=== PATIENT | female | born 1945 | race African-American/Black ===

== ENCOUNTER 2020-03-20 11:03 | Inpatient (IN) ==
[~2020-03-20 11:03] MED LIST: ASPIRIN CHEW 81 MG TABLET PO ONE; DIAZEPAM 5 MG TABLET PO ONE; MAGNESIUM SULF RIDER 2 GM in PREMIX 1 EACH IV PRN; POTASSIUM CHLORIDE RIDER 10 MEQ in PREMIX 1 EACH IV PRN; SODIUM CHLORIDE 0.9% 1,000 ML IV SCH; diphenhydrAMINE CAP 25 MG CAPSULE PO ONE
[2020-03-20] MEDS ORDERED: DIAZEPAM 5 MG TABLET ONE (12:37)
[2020-03-20] MEDS ORDERED: ASPIRIN 325 MG TABLET ONE (12:37)
[2020-03-20] MEDS ORDERED: diphenhydrAMINE CAP 25 MG CAPSULE ONE (12:38)
[2020-03-20] MEDS ORDERED: ASPIRIN EC 325 MG TABLET PO ONE (12:45)
[2020-03-20] MEDS ORDERED: MIDAZOLAM 2 MG/2 ML VIAL ONE (14:07)
[2020-03-20] MEDS ORDERED: fentaNYL 100 MCG/2 ML VIAL ONE (14:07)
[2020-03-20] MEDS ORDERED: LIDOCAINE 1% 20 ML VIAL ONE (14:07)
[2020-03-20] MEDS ORDERED: HEPARIN 5,000 UNIT/1 ML VIAL ONE (14:45)
[2020-03-20] MEDS ORDERED: MAGNESIUM SULF RIDER 2 GM in PREMIX 1 EACH IV PRN (15:37)
[2020-03-20] MEDS ORDERED: MAGNESIUM SULF RIDER 4 GM in PREMIX 1 EACH IV PRN (15:37)
[2020-03-20] MEDS ORDERED: ONDANSETRON 4 MG/2 ML VIAL IV PRN (15:37)
[2020-03-20] MEDS ORDERED: GLUCAGON 1 MG VIAL IM PRN (15:37)
[2020-03-20] MEDS ORDERED: DEXTROSE 10% 250 ML BAG IV PRN (15:37)
[2020-03-20] MEDS ORDERED: NITROGLYCERIN SL 0.4 MG TABLET SL PRN (15:45)
[2020-03-20] MEDS ORDERED: Mirabegron [Myrbetriq] 25 MG PO PRN (15:45)
[2020-03-20] MEDS ORDERED: ALBUTEROL 2.5 MG/3 ML NEB RESP TX PRN (19:00)
[2020-03-20] MEDS: carvediloL 6.25 MG TABLET PO SCH (21:51)
[2020-03-20] MEDS: cilostazoL 50 MG TABLET PO SCH (21:51)
[2020-03-20] MEDS: GABAPENTIN 300 MG CAPSULE PO SCH (21:51)
[2020-03-20] MEDS: ASPIRIN EC 81 MG TABLET PO SCH (21:51)
[2020-03-21 06:25] LABS: Basophils % 0.8 % (0.0-0.8); Eosinophils % 0.6 % (0.00-10.9); Hematocrit 27.3 VOL% (35.7-47.0); Hemoglobin 9.4 GM/DL (12.0-16.0); Immature Granulocytes % 0.4 %; Immature Granulocytes Absolute 0.02 #; Lymphocytes # 1.4 10*3/uL (1.4-4.0); Lymphocytes % 27.1 % (21.3-54.2); Mean Corpuscular HGB Conc 34.4 GM/DL (32-36); Mean Corpuscular Volume 75.6 FL (87-102); Mean Platelet Volume 10.6 FL (9.6-12.0); Monocytes % 11.9 % (1.7-12.7); Neutrophils % 59.2 % (38.7-73.9); Platelet Count 188 T/CUMM (130-400); Red Blood Count 3.61 MC/CUMM (3.8-5.5); Red Cell Distribution Width 15.2 % (9.3-17.3); White Blood Count 5.3 T/CUMM (4-12)
[2020-03-21 06:49] LABS: Alanine Aminotransferase 13 U/L (13-56); Alkaline Phosphatase 43 U/L (45-117); Aspartate Amino Transferase 10 U/L (0-37); Bilirubin,Total < 0.39 MG/DL (0.2-1.0); Blood Urea Nitrogen 24 MG/DL (7-18); Calcium 8.8 MG/DL (8.5-10.1); Estimated Glom Filtration Rate 69 ML/MIN; Glucose 81 MG/DL (74-106); Osmolality,Calculated 279.5 MOS/KG (273-304); Total Protein 6.2 G/DL (6.4-8.3)
[2020-03-21] MEDS: ASPIRIN EC 81 MG TABLET PO SCH (08:25)
[2020-03-21] MEDS: LORATADINE 10 MG TABLET PO SCH (08:26)
[2020-03-21] MEDS: GABAPENTIN 300 MG CAPSULE PO SCH ×3 (08:26→21:10)
[2020-03-21] MEDS: carvediloL 6.25 MG TABLET PO SCH ×2 (08:26→21:10)
[2020-03-21] MEDS: VALSARTAN 80 MG TABLET PO SCH (08:26)
[2020-03-21] MEDS: hydroCHLOROthiazide 12.5 MG CAPSULE PO SCH (08:26)
[2020-03-21] MEDS: PANTOPRAZOLE 40 MG TABLET PO SCH (08:27)
[2020-03-21] MEDS: EZETIMIBE 10 MG TABLET PO SCH (08:27)
[2020-03-21] MEDS: amLODIPine 2.5 MG TABLET PO SCH (08:27)
[2020-03-21] MEDS: cilostazoL 50 MG TABLET PO SCH (08:30)
[2020-03-21] MEDS: Fluticasone Furoate-Vilanterol [Breo Ellipta] 1 inh INH SCH (08:38)
[2020-03-21] MEDS ORDERED: PIOGLITAZONE 45 MG TABLET PO SCH (09:00)
[2020-03-21] MEDS ORDERED: GLUCAGON 1 MG VIAL IM PRN (12:10)
[2020-03-21] MEDS ORDERED: DEXTROSE 10% 250 ML BAG IV PRN (12:10)
[2020-03-21] MEDS ORDERED: SODIUM CHLORIDE 0.9% 1,000 ML IV SCH (12:30)
[2020-03-21 14:24] LABS: Allen Test Positive; Pt O2 Delivery Device Room Air
[2020-03-21 14:26] LABS: ABG Base Excess 0.5 MMOL/L (-2.5-2.5); ABG HCO3 24.8 MMOL/L (20-26); ABG Oxygen Saturation 96.5 % (95-100); ABG PCO2 38.6 MM HG (35-48); ABG PH 7.417 (7.35-7.45); ABG PO2 82.7 MM HG (80-95); ABG TCO2 22.4 MMOL/L (23-27)
[2020-03-21] MEDS: CHLORHEXIDINE 4% SOLN 118 ML BOTTLE TOP SCH (15:46)
[2020-03-21] MEDS ORDERED: ASPIRIN CHEW 81 MG TABLET PO ONE (16:53)
[2020-03-21] MEDS ORDERED: ENOXAPARIN 60 MG/0.6 ML SYRINGE SUBCUT ONE (16:55)
[2020-03-21] MEDS: NITROGLYCERIN 2% OINT 1 INCH/GM PACK TOP SCH (19:22)
[2020-03-21] MEDS: CHLORHEXIDINE 0.12% ORAL RINSE 60 ML BOTTLE SWISH/SPIT SCH (21:10)
[2020-03-21] MEDS: INSULIN REGULAR 100 UNIT/ML SUBCUT SCH (21:11)
[2020-03-22] MEDS: NITROGLYCERIN 2% OINT 1 INCH/GM PACK TOP SCH ×2 (00:16→06:06)
[2020-03-22] MEDS: CHLORHEXIDINE 4% SOLN 118 ML BOTTLE TOP SCH ×2 (00:16→11:42)
[2020-03-22] MEDS ORDERED: PAPAVERINE 60 MG/2 ML VIAL ONE (04:19)
[2020-03-22] MEDS ORDERED: VANCOMYCIN 1,000 MG VIAL ONE (04:19)
[2020-03-22] MEDS ORDERED: VANCOMYCIN 500 MG VIAL ONE (04:19)
[2020-03-22] MEDS ORDERED: DIAZEPAM 5 MG TABLET PO ONE (05:45)
[2020-03-22] MEDS ORDERED: CEFUROXIME INJ 1,500 MG in SYRINGE 1 EACH IV ONE (06:00)
[2020-03-22 07:35] LABS: ABG HCO3 23.1 MMOL/L (20-26); ABG PH 7.477 (7.35-7.45); ABG TCO2 24.1 MMOL/L (23-27); Glucose Heart Surgery 88 MG/DL (74-106); Hemoglobin Heart Surgery 9.5 G/DL (12.0-16.0); Ionized Calcium Arterial 1.16 MMOL/L (1.21-1.46); PH Patient Temp Arterial 7.477; PO2 Patient Temp Arterial 516.8 MM HG; Patient Temperature 37 CELCIUS; Potassium Heart/CVR 3.6 MMOL/L (3.5-5.1); Sodium Heart/CVR 135 MMOL/L (135-145)
[2020-03-22 07:36] LABS: ABG PO2 519.8 MM HG (80-95)
[2020-03-22 08:28] LABS: Apearance,Urine CLEAR (Clear); Bilirubin,Urine Negative (Negative); Blood, Urine Negative (Negative); Glucose,Urine (UA) Negative (Negative); Hyaline Casts,Urine 1 /LPF (0-3); Ketones,Urine Negative (Negative); Nitrite,Urine Negative (Negative); Protein,Urine Negative; RBC,Urine <1 /HPF (0-4); Urine Color Straw (Yellow); Urine Specific Gravity 1.009 (1.001-1.035); Urine Urobilinogen < 2.0 EU/DL (0.2-1.0); WBC,Urine <1 /HPF (0-6)
[2020-03-22] MEDS ORDERED: ASPIRIN CHEW 81 MG TABLET PO SCH (09:00)
[2020-03-22 09:12] LABS: Hematocrit Heart Surgery 26.5 PERCENT (37-47); Hemoglobin Heart Surgery 8.5 G/DL (12.0-16.0); PCO2 Patient Temp Venous 32.5 MM HG; PH Patient Temp Venous 7.447; PO2 Patient Temp Venous 47.6 MM HG; Potassium Heart/CVR 4.1 MMOL/L (3.5-5.1); VBG Base Excess -1.1 MEQ/L (0-4); VBG HCO3 23.4 MEQ/L (24-28); VBG PCO2 35.8 MMHG (41-51); VBG PH 7.417; VBG PO2 54.5 MMHG (17-40)
[2020-03-22] MEDS ORDERED: PHENYLEPHRINE DRIP 40 MG/250 ML PREMIX IV ONE (09:15)
[2020-03-22] MEDS ORDERED: ATROPINE 1 MG/10 ML SYRINGE ONE (09:16)
[2020-03-22] MEDS ORDERED: POTASSIUM CHLORIDE RIDER 100 ML IV ONE (09:16)
[2020-03-22] MEDS ORDERED: CALCIUM CHLORIDE 1,000 MG/10 ML SYRINGE IV ONE (09:16)
[2020-03-22] MEDS ORDERED: EPINEPHrine 1 MG/10 ML SYRINGE ONE (09:17)
[2020-03-22 09:35] LABS: Hematocrit Heart Surgery 26.8 PERCENT (37-47); Hemoglobin Heart Surgery 8.6 G/DL (12.0-16.0); PCO2 Patient Temp Venous 30.5 MM HG; PH Patient Temp Venous 7.515; PO2 Patient Temp Venous 43.8 MM HG; Potassium Heart/CVR 4.2 MMOL/L (3.5-5.1); VBG Base Excess 2.1 MEQ/L (0-4); VBG HCO3 26.1 MEQ/L (24-28); VBG PCO2 33.6 MMHG (41-51); VBG PH 7.485; VBG PO2 50.2 MMHG (17-40)
[2020-03-22] MEDS ORDERED: LIDOCAINE 2% 5 ML VIAL ONE ×2 (10:07→11:08)
[2020-03-22] MEDS ORDERED: MANNITOL 100 GM/500 ML BAG IV ONE (10:07)
[2020-03-22] MEDS ORDERED: DEXTROSE 5% KCL 20 MEQ 20 MEQ/1,000 ML BAG IV ONE (10:07)
[2020-03-22 10:08] LABS: ABG Base Excess 1.4 MMOL/L (-2.5-2.5); ABG HCO3 25.7 MMOL/L (20-26); ABG PCO2 33.2 MM HG (35-48); ABG PH 7.477 (7.35-7.45); ABG TCO2 22.6 MMOL/L (23-27); Glucose Heart Surgery 198 MG/DL (74-106); Hematocrit Heart Surgery 27.7 PERCENT (37-47); Hemoglobin Heart Surgery 8.9 G/DL (12.0-16.0); Ionized Calcium Arterial 1.36 MMOL/L (1.21-1.46); PCO2 Patient Temp Arterial 33.2 MMHG; PH Patient Temp Arterial 7.477; Patient Temperature 37 CELCIUS; Potassium Heart/CVR 3.8 MMOL/L (3.5-5.1); Sodium Heart/CVR 133 MMOL/L (135-145)
[2020-03-22] MEDS ORDERED: MAGNESIUM SULFATE 5 GM/10 ML VIAL IV ONE (10:08)
[2020-03-22] MEDS ORDERED: FUROSEMIDE 20 MG/2 ML VIAL ONE (10:08)
[2020-03-22] MEDS ORDERED: SODIUM BICARBONATE 50 MEQ/50 ML VIAL IV ONE (10:08)
[2020-03-22] MEDS ORDERED: PROTAMINE SULFATE 250 MG/25 ML VIAL IV ONE (10:08)
[2020-03-22] MEDS ORDERED: ALBUMIN 5% 12.5 GM/250 ML VIAL IV ONE ×2 (10:08→11:10)
[2020-03-22] MEDS ORDERED: ALBUMIN 25% 25 GM/100 ML VIAL IV ONE (10:08)
[2020-03-22] MEDS ORDERED: methylPREDNISolone SOD SUC 1,000 MG/8 ML VIAL ONE (10:08)
[2020-03-22] MEDS ORDERED: HEPARIN 10,000 UNIT/10 ML VIAL ONE (10:08)
[2020-03-22] MEDS ORDERED: THROMBIN TOPICAL (RECOMBINANT) 5,000 UNIT VIAL TOP ONE (10:14)
[2020-03-22] MEDS: SODIUM CHLORIDE 0.45% 1,000 ML IV SCH ×2 (11:05)
[2020-03-22] MEDS ORDERED: PHENYLEPHRINE DRIP 20 MG/250 ML PREMIX IV ONE (11:08)
[2020-03-22] MEDS ORDERED: CALCIUM CHLORIDE 1,000 MG/10 ML VIAL IV ONE (11:08)
[2020-03-22] MEDS ORDERED: SEVOFLURANE 1 UNIT/15 MINUTE INH ONE (11:08)
[2020-03-22] MEDS ORDERED: HEPARIN/NACL 0.9% 2 UNITS/ML 500 ML IV ONE (11:08)
[2020-03-22] MEDS ORDERED: METOPROLOL TARTRATE 5 MG/5 ML VIAL IV ONE (11:09)
[2020-03-22] MEDS ORDERED: MIDAZOLAM 10 MG/2 ML VIAL ONE ×2 (11:09)
[2020-03-22] MEDS ORDERED: VECURONIUM 10 MG VIAL IV ONE (11:09)
[2020-03-22] MEDS ORDERED: EPINEPHrine 1 MG/ML VIAL ONE (11:09)
[2020-03-22] MEDS ORDERED: SUFentanil 250 MCG/5 ML AMP ONE (11:09)
[2020-03-22] MEDS ORDERED: AMINOCAPROIC ACID 5,000 MG/20 ML VIAL ONE (11:10)
[2020-03-22] MEDS ORDERED: LACTATED RINGERS 1,000 ML IV ONE (11:10)
[2020-03-22] MEDS ORDERED: PHENYLEPHRINE 1 MG/10 ML SYRINGE IV ONE (11:10)
[2020-03-22] MEDS ORDERED: SODIUM CHLORIDE 0.9% 250 ML IV ONE (11:10)
[2020-03-22] MEDS ORDERED: SODIUM CHLORIDE 0.9% 100 ML IV ONE (11:10)
[2020-03-22] MEDS ORDERED: SODIUM CHLORIDE 0.9% 1,000 ML IV ONE (11:10)
[2020-03-22] MEDS ORDERED: MIDAZOLAM 10 MG/2 ML VIAL IV PRN (11:28)
[2020-03-22] MEDS ORDERED: INSULIN REGULAR 100 UNIT/ML IV ONE (11:28)
[2020-03-22] MEDS ORDERED: CHLORHEXIDINE 4% SOLN 118 ML BOTTLE TOP PRN (11:28)
[2020-03-22] MEDS ORDERED: NITROPRUSSIDE 100 MG in DEXTROSE 5% 250 ML IV PRN (11:28)
[2020-03-22] MEDS ORDERED: INSULIN REGULAR 100 UNIT/ML IV PRN (11:28)
[2020-03-22] MEDS ORDERED: HYDROmorphone 2 MG/1 ML VIAL IV PRN (11:28)
[2020-03-22] MEDS ORDERED: DEXTROSE 10% 250 ML BAG IV PRN ×2 (11:28)
[2020-03-22] MEDS ORDERED: POTASSIUM CHLORIDE RIDER 10 MEQ in PREMIX 1 EACH IV PRN (11:28)
[2020-03-22] MEDS ORDERED: MAGNESIUM SULF RIDER 4 GM in PREMIX 1 EACH IV PRN (11:28)
[2020-03-22] MEDS ORDERED: VECURONIUM 10 MG VIAL IV PRN ×2 (11:28)
[2020-03-22] MEDS ORDERED: CALCIUM CHLORIDE 1,000 MG/10 ML SYRINGE IV PRN (11:28)
[2020-03-22] MEDS ORDERED: MAGNESIUM SULF RIDER 2 GM in PREMIX 1 EACH IV PRN (11:28)
[2020-03-22] MEDS ORDERED: PHENYLEPHRINE DRIP 40 MG/250 ML PREMIX IV PRN (11:28)
[2020-03-22] MEDS ORDERED: ACETAMINOPHEN 650 MG SUPP RECTAL PRN (11:28)
[2020-03-22] MEDS ORDERED: ONDANSETRON 4 MG/2 ML VIAL IV PRN (11:28)
[2020-03-22] MEDS ORDERED: INSULIN REGULAR DRIP 100 ML IV SCH (11:28)
[2020-03-22] MEDS ORDERED: MIDAZOLAM 2 MG/2 ML VIAL IV PRN (11:28)
[2020-03-22 11:31] LABS: ABG Base Excess 0.5 MMOL/L (-2.5-2.5); ABG HCO3 24.9 MMOL/L (20-26); ABG Oxygen Saturation 99.8 % (95-100); ABG PCO2 33.3 MM HG (35-48); ABG PH 7.463 (7.35-7.45); ABG TCO2 21.6 MMOL/L (23-27); Glucose Heart Surgery 167 MG/DL (74-106); Potassium Heart/CVR 3.5 MMOL/L (3.5-5.1)
[2020-03-22 11:39] LABS: Basophils % 0.3 % (0.0-0.8); Eosinophils % 0.3 % (0.00-10.9); Hematocrit 30.1 VOL% (35.7-47.0); Hemoglobin 10.3 GM/DL (12.0-16.0); Immature Granulocytes % 1.4 %; Immature Granulocytes Absolute 0.15 #; Mean Corpuscular HGB Conc 34.2 GM/DL (32-36); Mean Corpuscular Volume 76.6 FL (87-102); Mean Platelet Volume 10.4 FL (9.6-12.0); Monocytes % 8.7 % (1.7-12.7); Neutrophils % 80.3 % (38.7-73.9); Platelet Count 146 T/CUMM (130-400); Red Blood Count 3.93 MC/CUMM (3.8-5.5); Red Cell Distribution Width 15.7 % (9.3-17.3); White Blood Count 10.8 T/CUMM (4-12)
[2020-03-22] MEDS: carvediloL 6.25 MG TABLET PO SCH (11:42)
[2020-03-22] MEDS: LORATADINE 10 MG TABLET PO SCH (11:42)
[2020-03-22] MEDS: INSULIN REGULAR 100 UNIT/ML SUBCUT SCH (11:42)
[2020-03-22] MEDS: amLODIPine 2.5 MG TABLET PO SCH (11:43)
[2020-03-22] MEDS: PANTOPRAZOLE 40 MG TABLET PO SCH (11:43)
[2020-03-22] MEDS: hydroCHLOROthiazide 12.5 MG CAPSULE PO SCH (11:43)
[2020-03-22] MEDS: EZETIMIBE 10 MG TABLET PO SCH (11:43)
[2020-03-22] MEDS: GABAPENTIN 300 MG CAPSULE PO SCH (11:43)
[2020-03-22] MEDS: VALSARTAN 80 MG TABLET PO SCH (11:43)
[2020-03-22] MEDS: Fluticasone Furoate-Vilanterol [Breo Ellipta] 1 inh INH SCH (11:43)
[2020-03-22] MEDS: CHLORHEXIDINE 0.12% ORAL RINSE 60 ML BOTTLE SWISH/SPIT SCH ×2 (11:43→20:31)
[2020-03-22 11:49] LABS: INR 1.2; Partial Thromboplastin Time 33.3 SECS (23.9-33.8)
[2020-03-22 11:56] LABS: Albumin 3.3 G/DL (3.4-5.0); Bilirubin,Total 0.8 MG/DL (0.2-1.0); Calcium 9.5 MG/DL (8.5-10.1); Total Protein 5.4 G/DL (6.4-8.3)
[2020-03-22 11:58] LABS: CKMB % 5.1 %
[2020-03-22 12:01] LABS: Troponin I 1.61 NG/ML (0.00-0.045)
[2020-03-22] MEDS: POTASSIUM CHLORIDE RIDER 20 MEQ in PREMIX 1 EACH IV PRN ×4 (12:13→22:39)
[2020-03-22] MEDS: LACTATED RINGERS 250 ML IV PRN ×8 (12:15→18:18)
[2020-03-22 14:04] LABS: ABG Base Excess 2.4 MMOL/L (-2.5-2.5); ABG HCO3 26.5 MMOL/L (20-26); ABG Oxygen Saturation 96.9 % (95-100); ABG PCO2 29.2 MM HG (35-48); ABG PH 7.529 (7.35-7.45); ABG PO2 77.5 MM HG (80-95); ABG TCO2 21.6 MMOL/L (23-27); Glucose Heart Surgery 169 MG/DL (74-106); Hematocrit Heart Surgery 34.9 PERCENT (37-47); Hemoglobin Heart Surgery 11.3 G/DL (12.0-16.0)
[2020-03-22] MEDS: ALBUMIN 5% 12.5 GM in PREMIX 1 EACH IV PRN ×3 (14:12→17:25)
[2020-03-22 16:00] LABS: ABG Base Excess 1.1 MMOL/L (-2.5-2.5); ABG HCO3 25.4 MMOL/L (20-26); ABG Oxygen Saturation 98.9 % (95-100); ABG PCO2 34.7 MM HG (35-48); ABG PH 7.458 (7.35-7.45); ABG TCO2 22.2 MMOL/L (23-27); Glucose Heart Surgery 116 MG/DL (74-106); Hematocrit Heart Surgery 32.2 PERCENT (37-47); Hemoglobin Heart Surgery 10.4 G/DL (12.0-16.0); Potassium Heart/CVR 3.4 MMOL/L (3.5-5.1)
[2020-03-22 17:10] LABS: ABG Base Excess -0.7 MMOL/L (-2.5-2.5); ABG HCO3 23.8 MMOL/L (20-26); ABG Oxygen Saturation 98.2 % (95-100); ABG PCO2 43.4 MM HG (35-48); ABG PH 7.364 (7.35-7.45); ABG TCO2 22.6 MMOL/L (23-27); Glucose Heart Surgery 88 MG/DL (74-106); Hematocrit Heart Surgery 30.3 PERCENT (37-47); Hemoglobin Heart Surgery 9.8 G/DL (12.0-16.0); Potassium Heart/CVR 4.6 MMOL/L (3.5-5.1)
[2020-03-22] MEDS: KETOROLAC 30 MG/1 ML VIAL IV SCH ×2 (17:18→21:51)
[2020-03-22] MEDS: CEFUROXIME INJ 1,500 MG in SYRINGE 1 EACH IV SCH (18:47)
[2020-03-22 19:10] LABS: Troponin I 3.01 NG/ML (0.00-0.045)
[2020-03-22 19:45] LABS: ABG Base Excess -1.4 MMOL/L (-2.5-2.5); ABG HCO3 23.2 MMOL/L (20-26); ABG Oxygen Saturation 98.5 % (95-100); ABG PCO2 44.4 MM HG (35-48); ABG PH 7.346 (7.35-7.45); ABG TCO2 22.4 MMOL/L (23-27); Glucose Heart Surgery 142 MG/DL (74-106); Hematocrit Heart Surgery 29.2 PERCENT (37-47); Hemoglobin Heart Surgery 9.4 G/DL (12.0-16.0); Potassium Heart/CVR 4.2 MMOL/L (3.5-5.1)
[2020-03-22] MEDS ORDERED: FUROSEMIDE 40 MG/4 ML VIAL IV ONE (21:39)
[2020-03-22 22:20] LABS: ABG Base Excess -1.2 MMOL/L (-2.5-2.5); ABG HCO3 23.4 MMOL/L (20-26); ABG Oxygen Saturation 98.5 % (95-100); ABG PCO2 36.6 MM HG (35-48); ABG PH 7.408 (7.35-7.45); ABG TCO2 21.1 MMOL/L (23-27); Glucose Heart Surgery 146 MG/DL (74-106); Hematocrit Heart Surgery 29.6 PERCENT (37-47); Hemoglobin Heart Surgery 9.5 G/DL (12.0-16.0)
[2020-03-22 23:12] LABS: ABG Base Excess -1.2 MMOL/L (-2.5-2.5); ABG HCO3 23.5 MMOL/L (20-26); ABG Oxygen Saturation 98.4 % (95-100); ABG PH 7.367 (7.35-7.45); ABG TCO2 22.2 MMOL/L (23-27); Glucose Heart Surgery 133 MG/DL (74-106); Hemoglobin Heart Surgery 9.4 G/DL (12.0-16.0); Potassium Heart/CVR 4.8 MMOL/L (3.5-5.1)
[2020-03-23 03:44] LABS: ABG Base Excess -1.2 MMOL/L (-2.5-2.5); ABG HCO3 23.4 MMOL/L (20-26); ABG Oxygen Saturation 98.8 % (95-100); ABG PH 7.374 (7.35-7.45); ABG TCO2 21.9 MMOL/L (23-27); Glucose Heart Surgery 113 MG/DL (74-106); Hematocrit Heart Surgery 29.8 PERCENT (37-47); Hemoglobin Heart Surgery 9.6 G/DL (12.0-16.0); Potassium Heart/CVR 4.3 MMOL/L (3.5-5.1)
[2020-03-23 03:47] LABS: Basophils % 0.1 % (0.0-0.8); Hematocrit 28.3 VOL% (35.7-47.0); Hemoglobin 9.6 GM/DL (12.0-16.0); Immature Granulocytes % 0.6 %; Lymphocytes # 0.7 10*3/uL (1.4-4.0); Lymphocytes % 3.8 % (21.3-54.2); Mean Corpuscular HGB Conc 33.9 GM/DL (32-36); Mean Platelet Volume 10.9 FL (9.6-12.0); Monocytes % 5.1 % (1.7-12.7); Neutrophils % 90.4 % (38.7-73.9); Platelet Count 141 T/CUMM (130-400); Red Blood Count 3.63 MC/CUMM (3.8-5.5); Red Cell Distribution Width 16.1 % (9.3-17.3); White Blood Count 17.4 T/CUMM (4-12)
[2020-03-23 04:04] LABS: CKMB % 3.4 %
[2020-03-23 04:12] LABS: Troponin I 3.53 NG/ML (0.00-0.045)
[2020-03-23 04:14] LABS: Albumin 3.7 G/DL (3.4-5.0); Bilirubin,Direct 0.18 MG/DL (0.0-0.20); Bilirubin,Total 0.6 MG/DL (0.2-1.0); Osmolality,Calculated 276.8 MOS/KG (273-304); Total Protein 6.3 G/DL (6.4-8.3)
[2020-03-23 04:40] LABS: ABG Base Excess -1.2 MMOL/L (-2.5-2.5); ABG HCO3 23.4 MMOL/L (20-26); ABG Oxygen Saturation 98.7 % (95-100); ABG PCO2 43.3 MM HG (35-48); ABG PH 7.357 (7.35-7.45); ABG TCO2 22.3 MMOL/L (23-27); Glucose Heart Surgery 109 MG/DL (74-106); Hematocrit Heart Surgery 30.1 PERCENT (37-47); Hemoglobin Heart Surgery 9.7 G/DL (12.0-16.0); Potassium Heart/CVR 4.4 MMOL/L (3.5-5.1)
[2020-03-23] MEDS: POTASSIUM CHLORIDE RIDER 20 MEQ in PREMIX 1 EACH IV PRN (04:54)
[2020-03-23 05:28] LABS: Lymphocytes 7 % (20-55); Segmented Neutrophils 88 % (50-85); Total Cells Counted 100
[2020-03-23 05:29] LABS: Anisocytosis 1+; Platelet Estimate Normal
[2020-03-23] MEDS: KETOROLAC 30 MG/1 ML VIAL IV SCH (05:44)
[2020-03-23] MEDS: CEFUROXIME INJ 1,500 MG in SYRINGE 1 EACH IV SCH (05:44)
[2020-03-23 06:07] LABS: ABG HCO3 22.8 MMOL/L (20-26); ABG Oxygen Saturation 98.9 % (95-100); ABG PCO2 40.4 MM HG (35-48); ABG PH 7.366 (7.35-7.45); ABG TCO2 21.3 MMOL/L (23-27); Glucose Heart Surgery 115 MG/DL (74-106); Hematocrit Heart Surgery 29.5 PERCENT (37-47); Hemoglobin Heart Surgery 9.5 G/DL (12.0-16.0); Potassium Heart/CVR 4.9 MMOL/L (3.5-5.1)
[2020-03-23] MEDS: CHLORHEXIDINE 0.12% ORAL RINSE 60 ML BOTTLE SWISH/SPIT SCH ×3 (08:28→22:49)
[2020-03-23 08:39] LABS: ABG HCO3 22.7 MMOL/L (20-26); ABG PCO2 39.4 MM HG (35-48); ABG PH 7.374 (7.35-7.45); ABG TCO2 21.1 MMOL/L (23-27); Glucose Heart Surgery 118 MG/DL (74-106); Hematocrit Heart Surgery 29.1 PERCENT (37-47); Hemoglobin Heart Surgery 9.4 G/DL (12.0-16.0); Potassium Heart/CVR 4.8 MMOL/L (3.5-5.1)
[2020-03-23] MEDS: EZETIMIBE 10 MG TABLET PO SCH (11:13)
[2020-03-23] MEDS: cilostazoL 50 MG TABLET PO SCH ×2 (11:13→22:47)
[2020-03-23] MEDS: OLMESARTAN 20 MG TABLET PO SCH (11:14)
[2020-03-23] MEDS: GABAPENTIN 300 MG CAPSULE PO SCH ×3 (11:14→22:47)
[2020-03-23] MEDS: hydroCHLOROthiazide 12.5 MG CAPSULE PO SCH (11:14)
[2020-03-23] MEDS: amLODIPine 2.5 MG TABLET PO SCH (11:14)
[2020-03-23] MEDS: PIOGLITAZONE 45 MG TABLET PO SCH (11:15)
[2020-03-23] MEDS: carvediloL 6.25 MG TABLET PO SCH ×2 (11:15→16:30)
[2020-03-23] MEDS: LORATADINE 10 MG TABLET PO SCH (11:15)
[2020-03-23] MEDS ORDERED: ALUMINUM/MAGNES/SIMETH MAX STR 30 ML UDCUP PO PRN (11:36)
[2020-03-23] MEDS ORDERED: MAGNESIUM SULF RIDER 2 GM in PREMIX 1 EACH IV PRN (11:36)
[2020-03-23] MEDS ORDERED: SODIUM CHLOR 0.45% KCL 20 MEQ 20 MEQ/1,000 ML BAG IV SCH (11:36)
[2020-03-23] MEDS ORDERED: oxyCODONE/ACETAMINOPHEN 5-325 MG TABLET PO PRN (11:36)
[2020-03-23] MEDS ORDERED: GLUCAGON 1 MG VIAL IM PRN ×2 (11:36)
[2020-03-23] MEDS ORDERED: DEXTROSE 10% 250 ML BAG IV PRN ×2 (11:36)
[2020-03-23] MEDS ORDERED: POTASSIUM CHLORIDE 20 MEQ TABLET PO PRN (11:36)
[2020-03-23] MEDS ORDERED: ONDANSETRON 4 MG/2 ML VIAL IV PRN (11:36)
[2020-03-23] MEDS ORDERED: MAGNESIUM SULF RIDER 4 GM in PREMIX 1 EACH IV PRN (11:36)
[2020-03-23] MEDS ORDERED: MAGNESIUM HYDROXIDE SUSP 30 ML UDCUP PO PRN (11:36)
[2020-03-23] MEDS ORDERED: ZALEPLON 5 MG CAPSULE PO PRN (11:36)
[2020-03-23] MEDS ORDERED: ACETAMINOPHEN 325 MG TABLET PO PRN (11:36)
[2020-03-23] MEDS: ASPIRIN EC 325 MG TABLET PO SCH (12:51)
[2020-03-23] MEDS: DOCUSATE SODIUM 100 MG CAPSULE PO SCH (12:51)
[2020-03-23] MEDS: FERROUS SULFATE 325 MG TABLET PO SCH (12:52)
[2020-03-23] MEDS: PANTOPRAZOLE 40 MG TABLET PO SCH (12:52)
[2020-03-23] MEDS: INSULIN REGULAR 100 UNIT/ML SUBCUT SCH ×3 (13:59→22:52)
[2020-03-23] MEDS: SODIUM CHLORIDE 0.45% 1,000 ML IV SCH ×2 (14:00)
[2020-03-24] MEDS ORDERED: KETOROLAC 30 MG/1 ML VIAL IV PRN (04:39)
[2020-03-24] MEDS ORDERED: FUROSEMIDE 40 MG/4 ML VIAL IV ONE ×2 (06:00→07:52)
[2020-03-24 06:43] LABS: Basophils % 0.1 % (0.0-0.8); Hematocrit 22.5 VOL% (35.7-47.0); Hemoglobin 7.7 GM/DL (12.0-16.0); Immature Granulocytes % 1.1 %; Immature Granulocytes Absolute 0.16 #; Lymphocytes # 0.6 10*3/uL (1.4-4.0); Lymphocytes % 4.1 % (21.3-54.2); Mean Corpuscular HGB Conc 34.2 GM/DL (32-36); Mean Corpuscular Volume 77.9 FL (87-102); Mean Platelet Volume 11.5 FL (9.6-12.0); Monocytes % 9.1 % (1.7-12.7); Neutrophils % 85.6 % (38.7-73.9); Platelet Count 118 T/CUMM (130-400); Red Blood Count 2.89 MC/CUMM (3.8-5.5); Red Cell Distribution Width 16.9 % (9.3-17.3); White Blood Count 15.2 T/CUMM (4-12)
[2020-03-24 06:57] LABS: Alanine Aminotransferase 13 U/L (13-56); Albumin 2.9 G/DL (3.4-5.0); Alkaline Phosphatase 28 U/L (45-117); Aspartate Amino Transferase 41 U/L (0-37); Bilirubin,Direct < 0.100 MG/DL (0.0-0.20); Bilirubin,Indirect 0.5 MG/DL (0.0-1.0); Blood Urea Nitrogen 42 MG/DL (7-18); CKMB % 1.2 %; Calcium 8.4 MG/DL (8.5-10.1); Estimated Glom Filtration Rate 38 ML/MIN; Glucose 112 MG/DL (74-106); Osmolality,Calculated 284.8 MOS/KG (273-304); Total Protein 5.4 G/DL (6.4-8.3)
[2020-03-24] MEDS ORDERED: SODIUM CHLORIDE 0.9% 1,000 ML IV PRN (07:51)
[2020-03-24 08:42] LABS: Anisocytosis 1+; Band Neutrophils 4 % (0-10); Lymphocytes 7 % (20-55); Macrocytosis Slight; Platelet Estimate Adequate; Segmented Neutrophils 82 % (50-85); Total Cells Counted 100
[2020-03-24] MEDS: ASPIRIN EC 325 MG TABLET PO SCH (08:51)
[2020-03-24] MEDS: EZETIMIBE 10 MG TABLET PO SCH (08:51)
[2020-03-24] MEDS: DOCUSATE SODIUM 100 MG CAPSULE PO SCH (08:51)
[2020-03-24] MEDS: cilostazoL 50 MG TABLET PO SCH ×2 (08:52→21:50)
[2020-03-24] MEDS: FERROUS SULFATE 325 MG TABLET PO SCH (08:52)
[2020-03-24] MEDS: LORATADINE 10 MG TABLET PO SCH (08:52)
[2020-03-24] MEDS: GABAPENTIN 300 MG CAPSULE PO SCH ×3 (08:52→21:50)
[2020-03-24] MEDS: INSULIN REGULAR 100 UNIT/ML SUBCUT SCH ×4 (08:53→21:47)
[2020-03-24] MEDS: PANTOPRAZOLE 40 MG TABLET PO SCH (08:53)
[2020-03-24] MEDS: carvediloL 6.25 MG TABLET PO SCH ×2 (08:53→16:36)
[2020-03-24] MEDS: CHLORHEXIDINE 0.12% ORAL RINSE 60 ML BOTTLE SWISH/SPIT SCH ×2 (08:58→21:53)
[2020-03-24] MEDS ORDERED: ROSUVASTATIN 20 MG TABLET PO SCH (09:00)
[2020-03-24] MEDS: hydroCHLOROthiazide 12.5 MG CAPSULE PO SCH (10:37)
[2020-03-24] MEDS: amLODIPine 2.5 MG TABLET PO SCH (10:37)
[2020-03-24] MEDS: ATORVASTATIN 40 MG TABLET PO SCH (10:37)
[2020-03-24] MEDS: OLMESARTAN 20 MG TABLET PO SCH (10:38)
[2020-03-24 17:29] LABS: Hematocrit 33.6 VOL% (35.7-47.0)
[2020-03-24 17:33] LABS: Hemoglobin 11.2 GM/DL (12.0-16.0)
[2020-03-25 06:58] LABS: Basophils % 0.1 % (0.0-0.8); Hematocrit 31.9 VOL% (35.7-47.0); Hemoglobin 10.6 GM/DL (12.0-16.0); Immature Granulocytes % 0.6 %; Lymphocytes % 6.1 % (21.3-54.2); Mean Corpuscular HGB Conc 33.2 GM/DL (32-36); Mean Corpuscular Volume 81.6 FL (87-102); Mean Platelet Volume 11.3 FL (9.6-12.0); Monocytes % 11.2 % (1.7-12.7); Platelet Count 135 T/CUMM (130-400); Red Blood Count 3.91 MC/CUMM (3.8-5.5); Red Cell Distribution Width 16.9 % (9.3-17.3); White Blood Count 15.5 T/CUMM (4-12)
[2020-03-25 07:15] LABS: Platelet Estimate Adequate
[2020-03-25 07:16] LABS: Anisocytosis 1+; Target Cells Few
[2020-03-25 07:34] LABS: Alanine Aminotransferase 25 U/L (13-56); Albumin 3.1 G/DL (3.4-5.0); Alkaline Phosphatase 41 U/L (45-117); Aspartate Amino Transferase 66 U/L (0-37); Bilirubin,Direct < 0.100 MG/DL (0.0-0.20); Bilirubin,Indirect 1.5 MG/DL (0.0-1.0); Blood Urea Nitrogen 39 MG/DL (7-18); Calcium 8.8 MG/DL (8.5-10.1); Estimated Glom Filtration Rate 64 ML/MIN; Glucose 110 MG/DL (74-106); Osmolality,Calculated 284.7 MOS/KG (273-304); Total Protein 5.7 G/DL (6.4-8.3)
[2020-03-25 07:44] LABS: CKMB % 0.4 %
[2020-03-25] MEDS: INSULIN REGULAR 100 UNIT/ML SUBCUT SCH ×4 (08:27→20:48)
[2020-03-25] MEDS: OLMESARTAN 20 MG TABLET PO SCH (09:43)
[2020-03-25] MEDS: DOCUSATE SODIUM 100 MG CAPSULE PO SCH (09:44)
[2020-03-25] MEDS: GABAPENTIN 300 MG CAPSULE PO SCH ×3 (09:44→20:49)
[2020-03-25] MEDS: carvediloL 6.25 MG TABLET PO SCH ×2 (09:44→16:26)
[2020-03-25] MEDS: cilostazoL 50 MG TABLET PO SCH ×2 (09:44→20:49)
[2020-03-25] MEDS: LORATADINE 10 MG TABLET PO SCH (09:44)
[2020-03-25] MEDS: FERROUS SULFATE 325 MG TABLET PO SCH (09:44)
[2020-03-25] MEDS: PANTOPRAZOLE 40 MG TABLET PO SCH (09:44)
[2020-03-25] MEDS: amLODIPine 2.5 MG TABLET PO SCH (09:44)
[2020-03-25] MEDS: hydroCHLOROthiazide 12.5 MG CAPSULE PO SCH (09:44)
[2020-03-25] MEDS: EZETIMIBE 10 MG TABLET PO SCH (09:45)
[2020-03-25] MEDS: ASPIRIN EC 325 MG TABLET PO SCH (09:45)
[2020-03-25] MEDS: CHLORHEXIDINE 0.12% ORAL RINSE 60 ML BOTTLE SWISH/SPIT SCH ×2 (09:45→20:53)
[2020-03-25] MEDS: ATORVASTATIN 40 MG TABLET PO SCH (09:45)
[2020-03-25] MEDS: PIOGLITAZONE 45 MG TABLET PO SCH (09:54)
[2020-03-25] MEDS: ASCORBIC ACID 500 MG TABLET PO SCH (20:49)
[2020-03-26 06:46] LABS: Basophils % 0.2 % (0.0-0.8); Eosinophils # 0.1 10*3/uL (0.0-0.87); Eosinophils % 0.8 % (0.00-10.9); Hematocrit 33.8 VOL% (35.7-47.0); Hemoglobin 10.9 GM/DL (12.0-16.0); Immature Granulocytes % 0.8 %; Immature Granulocytes Absolute 0.08 #; Lymphocytes # 1.7 10*3/uL (1.4-4.0); Lymphocytes % 15.9 % (21.3-54.2); Mean Corpuscular HGB Conc 32.2 GM/DL (32-36); Mean Platelet Volume 11.2 FL (9.6-12.0); Monocytes % 13.3 % (1.7-12.7); Platelet Count 159 T/CUMM (130-400); Red Blood Count 4.07 MC/CUMM (3.8-5.5); Red Cell Distribution Width 17.2 % (9.3-17.3); White Blood Count 10.4 T/CUMM (4-12)
[2020-03-26] MEDS: INSULIN REGULAR 100 UNIT/ML SUBCUT SCH ×4 (08:01→21:31)
[2020-03-26] MEDS: LORATADINE 10 MG TABLET PO SCH (08:31)
[2020-03-26] MEDS: cilostazoL 50 MG TABLET PO SCH ×2 (08:31→21:27)
[2020-03-26] MEDS: GABAPENTIN 300 MG CAPSULE PO SCH ×3 (08:31→21:27)
[2020-03-26] MEDS: FERROUS SULFATE 325 MG TABLET PO SCH (08:31)
[2020-03-26] MEDS: ATORVASTATIN 40 MG TABLET PO SCH (08:31)
[2020-03-26] MEDS: ASCORBIC ACID 500 MG TABLET PO SCH ×2 (08:31→21:27)
[2020-03-26] MEDS: carvediloL 6.25 MG TABLET PO SCH ×2 (08:31→16:09)
[2020-03-26] MEDS: OLMESARTAN 20 MG TABLET PO SCH (08:32)
[2020-03-26] MEDS: DOCUSATE SODIUM 100 MG CAPSULE PO SCH (08:32)
[2020-03-26] MEDS: ASPIRIN EC 325 MG TABLET PO SCH (08:32)
[2020-03-26] MEDS: hydroCHLOROthiazide 12.5 MG CAPSULE PO SCH (08:32)
[2020-03-26] MEDS: amLODIPine 2.5 MG TABLET PO SCH (08:32)
[2020-03-26] MEDS: PANTOPRAZOLE 40 MG TABLET PO SCH (08:32)
[2020-03-26] MEDS: EZETIMIBE 10 MG TABLET PO SCH (08:32)
[2020-03-26] MEDS: CHLORHEXIDINE 0.12% ORAL RINSE 60 ML BOTTLE SWISH/SPIT SCH ×2 (08:33→21:27)
[2020-03-26] MEDS ORDERED: AMIODARONE INJ 100 MG in DEXTROSE 5% 100 ML IV ONE (09:20)
[2020-03-26] MEDS ORDERED: POTASSIUM CHLORIDE 20 MEQ TABLET PO ONE (11:30)
[2020-03-26] MEDS: AMIODARONE INJ 450 MG in DEXTROSE 5% 241 ML IV SCH (12:00)
[2020-03-26] MEDS: SPIRONOLACTONE 25 MG TABLET PO SCH (21:52)
[2020-03-27] MEDS: AMIODARONE INJ 450 MG in DEXTROSE 5% 241 ML IV SCH ×2 (03:18→08:02)
[2020-03-27 06:15] LABS: Basophils % 0.4 % (0.0-0.8); Eosinophils # 0.2 10*3/uL (0.0-0.87); Eosinophils % 1.7 % (0.00-10.9); Hematocrit 33.8 VOL% (35.7-47.0); Immature Granulocytes % 0.8 %; Immature Granulocytes Absolute 0.07 #; Lymphocytes # 1.5 10*3/uL (1.4-4.0); Lymphocytes % 16.3 % (21.3-54.2); Mean Corpuscular HGB Conc 32.5 GM/DL (32-36); Mean Platelet Volume 11.1 FL (9.6-12.0); Monocytes % 12.9 % (1.7-12.7); Neutrophils % 67.9 % (38.7-73.9); Platelet Count 184 T/CUMM (130-400); Red Blood Count 4.07 MC/CUMM (3.8-5.5); Red Cell Distribution Width 17.3 % (9.3-17.3); White Blood Count 9.2 T/CUMM (4-12)
[2020-03-27 06:36] LABS: Calcium 8.9 MG/DL (8.5-10.1); Osmolality,Calculated 281.8 MOS/KG (273-304)
[2020-03-27 06:43] LABS: Alanine Aminotransferase 43 U/L (13-56); Albumin 2.9 G/DL (3.4-5.0); Alkaline Phosphatase 50 U/L (45-117); Aspartate Amino Transferase 41 U/L (0-37); Bilirubin,Indirect 0.5 MG/DL (0.0-1.0); Blood Urea Nitrogen 28 MG/DL (7-18); Estimated Glom Filtration Rate 63 ML/MIN; Glucose 153 MG/DL (74-106); Osmolality,Calculated 281.8 MOS/KG (273-304); Total Protein 6.2 G/DL (6.4-8.3)
[2020-03-27 06:44] LABS: Troponin I 0.332 NG/ML (0.00-0.045)
[2020-03-27] MEDS: INSULIN REGULAR 100 UNIT/ML SUBCUT SCH ×4 (08:15→20:43)
[2020-03-27] MEDS: EZETIMIBE 10 MG TABLET PO SCH (09:04)
[2020-03-27] MEDS: OLMESARTAN 20 MG TABLET PO SCH (09:04)
[2020-03-27] MEDS: ASPIRIN EC 325 MG TABLET PO SCH (09:04)
[2020-03-27] MEDS: GABAPENTIN 300 MG CAPSULE PO SCH ×3 (09:04→22:26)
[2020-03-27] MEDS: ATORVASTATIN 40 MG TABLET PO SCH (09:05)
[2020-03-27] MEDS: carvediloL 6.25 MG TABLET PO SCH ×2 (09:05→16:06)
[2020-03-27] MEDS: SPIRONOLACTONE 25 MG TABLET PO SCH (09:05)
[2020-03-27] MEDS: cilostazoL 50 MG TABLET PO SCH ×2 (09:05→22:27)
[2020-03-27] MEDS: DOCUSATE SODIUM 100 MG CAPSULE PO SCH (09:05)
[2020-03-27] MEDS: ASCORBIC ACID 500 MG TABLET PO SCH ×2 (09:05→22:29)
[2020-03-27] MEDS: CHLORHEXIDINE 0.12% ORAL RINSE 60 ML BOTTLE SWISH/SPIT SCH ×2 (09:06→22:32)
[2020-03-27] MEDS: LORATADINE 10 MG TABLET PO SCH (09:06)
[2020-03-27] MEDS: PANTOPRAZOLE 40 MG TABLET PO SCH (09:06)
[2020-03-27] MEDS: PIOGLITAZONE 45 MG TABLET PO SCH (09:06)
[2020-03-27] MEDS: FERROUS SULFATE 325 MG TABLET PO SCH (09:06)
[2020-03-27] MEDS: hydroCHLOROthiazide 12.5 MG CAPSULE PO SCH (09:06)
[2020-03-27] MEDS ORDERED: FUROSEMIDE 20 MG/2 ML VIAL IV ONE (18:45)
[2020-03-28 06:31] LABS: Basophils % 0.4 % (0.0-0.8); Eosinophils # 0.2 10*3/uL (0.0-0.87); Eosinophils % 1.7 % (0.00-10.9); Hematocrit 32.8 VOL% (35.7-47.0); Hemoglobin 11.1 GM/DL (12.0-16.0); Immature Granulocytes % 0.8 %; Immature Granulocytes Absolute 0.07 #; Lymphocytes # 1.4 10*3/uL (1.4-4.0); Lymphocytes % 15.3 % (21.3-54.2); Mean Corpuscular HGB Conc 33.8 GM/DL (32-36); Mean Corpuscular Volume 80.4 FL (87-102); Mean Platelet Volume 10.4 FL (9.6-12.0); Monocytes % 14.4 % (1.7-12.7); Neutrophils % 67.4 % (38.7-73.9); Platelet Count 188 T/CUMM (130-400); Red Blood Count 4.08 MC/CUMM (3.8-5.5)
[2020-03-28 07:11] LABS: Alanine Aminotransferase 44 U/L (13-56); Alkaline Phosphatase 48 U/L (45-117); Aspartate Amino Transferase 30 U/L (0-37); Bilirubin,Indirect 0.8 MG/DL (0.0-1.0); Blood Urea Nitrogen 28 MG/DL (7-18); Calcium 8.9 MG/DL (8.5-10.1); Estimated Glom Filtration Rate 63 ML/MIN; Glucose 111 MG/DL (74-106); Osmolality,Calculated 276.1 MOS/KG (273-304); Total Protein 5.6 G/DL (6.4-8.3)
[2020-03-28 07:12] LABS: Troponin I 0.126 NG/ML (0.00-0.045)
[2020-03-28] MEDS: hydroCHLOROthiazide 12.5 MG CAPSULE PO SCH (08:11)
[2020-03-28] MEDS: EZETIMIBE 10 MG TABLET PO SCH (08:11)
[2020-03-28] MEDS: ASPIRIN EC 325 MG TABLET PO SCH (08:11)
[2020-03-28] MEDS: CHLORHEXIDINE 0.12% ORAL RINSE 60 ML BOTTLE SWISH/SPIT SCH ×2 (08:11→22:39)
[2020-03-28] MEDS: OLMESARTAN 20 MG TABLET PO SCH (08:11)
[2020-03-28] MEDS: GABAPENTIN 300 MG CAPSULE PO SCH ×3 (08:11→22:37)
[2020-03-28] MEDS: cilostazoL 50 MG TABLET PO SCH ×2 (08:12→22:37)
[2020-03-28] MEDS: ATORVASTATIN 40 MG TABLET PO SCH (08:12)
[2020-03-28] MEDS: carvediloL 6.25 MG TABLET PO SCH ×2 (08:12→16:08)
[2020-03-28] MEDS: FERROUS SULFATE 325 MG TABLET PO SCH (08:12)
[2020-03-28] MEDS: ASCORBIC ACID 500 MG TABLET PO SCH ×2 (08:12→22:38)
[2020-03-28] MEDS: LORATADINE 10 MG TABLET PO SCH (08:12)
[2020-03-28] MEDS: DOCUSATE SODIUM 100 MG CAPSULE PO SCH (08:12)
[2020-03-28] MEDS: FUROSEMIDE 20 MG TABLET PO SCH (08:12)
[2020-03-28] MEDS: SPIRONOLACTONE 25 MG TABLET PO SCH (08:13)
[2020-03-28] MEDS: PANTOPRAZOLE 40 MG TABLET PO SCH (08:13)
[2020-03-28] MEDS: INSULIN REGULAR 100 UNIT/ML SUBCUT SCH ×4 (08:31→23:27)
[2020-03-29 05:50] LABS: Basophils % 0.4 % (0.0-0.8); Eosinophils # 0.2 10*3/uL (0.0-0.87); Eosinophils % 1.6 % (0.00-10.9); Hematocrit 31.6 VOL% (35.7-47.0); Hemoglobin 10.6 GM/DL (12.0-16.0); Immature Granulocytes % 1.1 %; Immature Granulocytes Absolute 0.12 #; Lymphocytes # 1.8 10*3/uL (1.4-4.0); Lymphocytes % 16.8 % (21.3-54.2); Mean Corpuscular HGB Conc 33.5 GM/DL (32-36); Mean Corpuscular Volume 79.6 FL (87-102); Mean Platelet Volume 10.8 FL (9.6-12.0); Monocytes % 12.5 % (1.7-12.7); Neutrophils % 67.6 % (38.7-73.9); Platelet Count 205 T/CUMM (130-400); Red Blood Count 3.97 MC/CUMM (3.8-5.5); White Blood Count 10.6 T/CUMM (4-12)
[2020-03-29 06:15] LABS: Calcium 8.8 MG/DL (8.5-10.1); Osmolality,Calculated 272.4 MOS/KG (273-304)
[2020-03-29] MEDS ORDERED: carvediloL 12.5 MG TABLET PO SCH (08:09)
[2020-03-29] MEDS ORDERED: OLMESARTAN 5 MG TABLET PO SCH (09:00)
[2020-03-29] MEDS: INSULIN REGULAR 100 UNIT/ML SUBCUT SCH ×2 (09:24→13:04)
[2020-03-29] MEDS: PIOGLITAZONE 45 MG TABLET PO SCH (09:25)
[2020-03-29] MEDS: SPIRONOLACTONE 25 MG TABLET PO SCH (09:26)
[2020-03-29] MEDS: ASPIRIN EC 325 MG TABLET PO SCH (09:27)
[2020-03-29] MEDS: DOCUSATE SODIUM 100 MG CAPSULE PO SCH (09:27)
[2020-03-29] MEDS: FERROUS SULFATE 325 MG TABLET PO SCH (09:27)
[2020-03-29] MEDS: LORATADINE 10 MG TABLET PO SCH (09:27)
[2020-03-29] MEDS: PANTOPRAZOLE 40 MG TABLET PO SCH (09:28)
[2020-03-29] MEDS: FUROSEMIDE 20 MG TABLET PO SCH (09:28)
[2020-03-29] MEDS: GABAPENTIN 300 MG CAPSULE PO SCH (09:28)
[2020-03-29] MEDS: ATORVASTATIN 40 MG TABLET PO SCH (09:28)
[2020-03-29] MEDS: EZETIMIBE 10 MG TABLET PO SCH (09:29)
[2020-03-29] MEDS: cilostazoL 50 MG TABLET PO SCH (09:29)
[2020-03-29] MEDS: ASCORBIC ACID 500 MG TABLET PO SCH (09:29)
[2020-03-29] MEDS: carvediloL 6.25 MG TABLET PO SCH (09:30)
[2020-03-29] MEDS: CHLORHEXIDINE 0.12% ORAL RINSE 60 ML BOTTLE SWISH/SPIT SCH (09:36)
[2020-03-29 12:39] VITALS: BP 123/49
== END 2020-03-29 14:15 | disposition home health service (06) | DRG 234 ==
LOC: N.CL 11:03 → N.TELEN 15:54 → N.CVR 03-22 10:36 → N.TELES 03-23 11:37
PROVIDERS: ADMIT Internal Medicine Cardiovascular Disease
PROC: CLCCHCL (ICD-10-PCS; 2020-03-20 14:45)

== ENCOUNTER 2022-02-21 08:27 | Observation (INO) ==
[2022-02-21] MEDS ORDERED: ASPIRIN 325 MG TABLET PO STA (08:47)
[2022-02-21] MEDS ORDERED: NITROGLYCERIN SL 0.4 MG TABLET SL PRN ×2 (08:47→13:19)
[2022-02-21 09:36] LABS: Albumin 3.6 G/DL (3.4-5.0); Bilirubin,Total 0.5 MG/DL (0.20-1.00); Calcium 9.5 MG/DL (8.5-10.1); Osmolality,Calculated 268.4 MOS/KG (273-304); Potassium 4.6 MMOL/L (3.5-5.1); Total Protein 6.9 G/DL (6.4-8.2)
[2022-02-21 09:51] LABS: Basophils % 0.4 % (0.0-0.8); Eosinophils % 0.1 % (0.00-10.9); Hematocrit 34.7 VOL% (35.7-47.0); Hemoglobin 12.2 GM/DL (12.0-16.0); Immature Granulocytes % 0.4 %; Immature Granulocytes Absolute 0.03 #; Lymphocytes % 15.1 % (21.3-54.2); Mean Corpuscular HGB Conc 35.2 GM/DL (32-36); Mean Platelet Volume 10.5 FL (9.6-12.0); Monocytes # 0.4 10*3/uL (0.11-0.8); Monocytes % 6.5 % (1.7-12.7); Neutrophils % 77.5 % (38.7-73.9); Platelet Count 184 T/CUMM (130-400); Red Blood Count 4.39 MC/CUMM (3.8-5.5); Red Cell Distribution Width 15.3 % (9.3-17.3); White Blood Count 6.8 T/CUMM (4-12)
[2022-02-21 12:33] LABS: RBC,Urine 2 /HPF (0-4); Urine Appearance Clear (Clear); Urine Color Yellow (Yellow)
[2022-02-21 12:34] LABS: Bilirubin,Urine Negative (Negative); Blood, Urine Negative (Negative); Glucose,Urine (UA) Negative (Negative); Ketones,Urine Negative (Negative); Nitrite,Urine Negative (Negative); Protein,Urine Negative (Negative); Urine Specific Gravity 1.015 (1.001-1.035); Urine Urobilinogen 0.2 eU/dL (<2.0); Urine pH 7.5 (4.5-8.0)
[2022-02-21] MEDS ORDERED: ONDANSETRON 4 MG/2 ML VIAL IV PRN (13:14)
[2022-02-21] MEDS ORDERED: MAGNESIUM SULF RIDER 4 GM/100 ML PREMIX IV PRN (13:14)
[2022-02-21] MEDS ORDERED: GLUCAGON 1 MG VIAL IM PRN ×2 (13:14→18:52)
[2022-02-21] MEDS ORDERED: MAGNESIUM SULF RIDER 2 GM/50 ML PREMIX IV PRN (13:14)
[2022-02-21] MEDS ORDERED: NON-FORMULARY MEDICATION (Fluticasone Furoate-Vilanterol [Breo Ellipta] 100-25 mcg/dose Bl INH PRN (13:19)
[2022-02-21] MEDS ORDERED: LORATADINE 10 MG TABLET PO PRN (13:19)
[2022-02-21] MEDS ORDERED: DEXTROSE 10% 250 ML BAG IV PRN ×2 (13:41→19:26)
[2022-02-21] MEDS: SODIUM CHLORIDE 0.45% 1,000 ML IV SCH (14:03)
[2022-02-21] MEDS ORDERED: ALBUTEROL 2.5 MG/3 ML NEB RESP TX PRN (15:00)
[2022-02-21] MEDS: GABAPENTIN 300 MG CAPSULE PO SCH ×2 (16:36→21:24)
[2022-02-21] MEDS: ENOXAPARIN 40 MG/0.4 ML SYRINGE SUBCUT SCH (16:37)
[2022-02-21] MEDS: carvediloL 12.5 MG TABLET PO SCH (16:38)
[2022-02-21] MEDS ORDERED: FUROSEMIDE 40 MG/4 ML VIAL IV ONE (18:41)
[2022-02-21] MEDS ORDERED: OLMESARTAN 5 MG TABLET PO ONE (19:02)
[2022-02-22] MEDS: SODIUM CHLORIDE 0.45% 1,000 ML IV SCH (03:03)
[2022-02-22 05:55] LABS: Basophils % 0.5 % (0.0-0.8); Eosinophils % 0.7 % (0.00-10.9); Hematocrit 31.7 VOL% (35.7-47.0); Hemoglobin 11.1 GM/DL (12.0-16.0); Immature Granulocytes % 0.2 %; Immature Granulocytes Absolute 0.01 #; Lymphocytes # 1.6 10*3/uL (1.4-4.0); Lymphocytes % 25.4 % (21.3-54.2); Mean Corpuscular Volume 78.9 FL (87-102); Mean Platelet Volume 10.8 FL (9.6-12.0); Monocytes # 0.7 10*3/uL (0.11-0.8); Monocytes % 12.1 % (1.7-12.7); Neutrophils % 61.1 % (38.7-73.9); Platelet Count 167 T/CUMM (130-400); Red Blood Count 4.02 MC/CUMM (3.8-5.5); Red Cell Distribution Width 15.4 % (9.3-17.3); White Blood Count 6.1 T/CUMM (4-12)
[2022-02-22 06:19] LABS: Osmolality,Calculated 270.2 MOS/KG (273-304); Potassium 4.1 MMOL/L (3.5-5.1)
[2022-02-22] MEDS ORDERED: INSULIN REGULAR 100 UNIT/ML SUBCUT SCH (07:30)
[2022-02-22] MEDS ORDERED: FUROSEMIDE 40 MG TABLET PO SCH (09:00)
[2022-02-22] MEDS ORDERED: NON-FORMULARY MEDICATION (Mirabegron [Myrbetriq] 25 mg Tablet Extended Release 24 Hr) PO SCH (09:00)
[2022-02-22] MEDS ORDERED: PIOGLITAZONE 15 MG TABLET PO SCH (09:00)
[2022-02-22] MEDS ORDERED: OLMESARTAN 5 MG TABLET PO SCH (09:00)
[2022-02-22] MEDS ORDERED: cilostazoL 50 MG TABLET PO SCH (09:00)
[2022-02-22] MEDS ORDERED: EZETIMIBE 10 MG TABLET PO SCH (09:00)
[2022-02-22] MEDS ORDERED: OLMESARTAN 20 MG TABLET PO SCH (09:00)
[2022-02-22] MEDS ORDERED: CLOPIDOGREL 75 MG TABLET PO SCH (09:00)
[2022-02-22] MEDS ORDERED: ASPIRIN CHEW 81 MG TABLET PO SCH (09:00)
[2022-02-22] MEDS: carvediloL 12.5 MG TABLET PO SCH (10:27)
[2022-02-22] MEDS: GABAPENTIN 300 MG CAPSULE PO SCH ×2 (10:30→15:20)
[2022-02-22] MEDS ORDERED: KETOROLAC 15 MG/1 ML VIAL IV ONE (12:47)
[2022-02-22] MEDS ORDERED: FUROSEMIDE 20 MG/2 ML VIAL IV ONE (12:48)
[2022-02-22 14:08] VITALS: BP 118/70
[2022-02-22] MEDS: ENOXAPARIN 40 MG/0.4 ML SYRINGE SUBCUT SCH (15:20)
[2022-02-23] MEDS ORDERED: ATORVASTATIN 40 MG TABLET PO SCH (21:00)
== END 2022-02-22 16:19 | disposition home or self-care (01) ==
LOC: N.ED 08:27 → N.EDINP 08:27 → N.TELEN 13:48
PROVIDERS: ADMIT Internal Medicine; ATTEND Internal Medicine